=== PATIENT | female | born 1990 | race African-American/Black ===

== ENCOUNTER 2020-03-06 20:31 | Outpatient (CLI) | payer OTHER ==
[2020-03-06 22:53] LABS: BILIRUBIN,URINE NEGATIVE (NEGATIVE); GLUCOSE, URINE (UA) NEGATIVE (NEGATIVE); KETONES,URINE (UA) 40 mg/dL (NEGATIVE); LEUKOCYTE ESTERASE, URINE NEGATIVE (NEGATIVE); NITRITE,URINE NEGATIVE (NEGATIVE); OCCULT BLOOD,URINE NEGATIVE (NEGATIVE); PROTEIN,URINE NEGATIVE (NEGATIVE); UROBILINOGEN,URINE 0.2 (NORMAL) E.U./dL (NORMAL)
[2020-03-06 22:54] LABS: CLARITY,URINE CLEAR (CLEAR)
[2020-03-06 23:01] LABS: BACTERIA,URINE None Seen /HPF (None Seen); RBC,URINE 0-5 /HPF (0-5); SQUAMOUS EPITHELIAL CELL,UR NONE SEEN (<= Few)
--- NOTE | 2020-03-06 23:23 | PROVIDER PROGRESS NOTE ---
- HPI Chief Complaint: Vaginal bleeding Current : Patient is a 29-year-old G2, P1 at approximately 30 weeks EGA per patient report here with vaginal bleeding. Patient reports that she had a small amount of dark blood upon waking today. As her day progressed she had passage of higher volume of red blood. No active bleeding no passage of clots. Patient denies any recent SA and denies any instigating events. Reports movement. Denies loss of fluid or active contractions. Reports severe EVARISTO. Seeing Mayes next week for consult. Has had 1 prior about 17 months ago. Otherwise unremarkable past medical history. PMH: none PSH: CSx1 wisdom teeth neck cyst removed OBHX: one prior , uncomplicated CS forfailure to progress and intolerance of labor Current EDU 05/16/20 Gestation 29 Weeks and 6 Days 2 Para 1 Vital Signs Temperature 99.3 F 03/06/20 20:52 Heart Rate 101 H 03/06/20 20:52 Respiratory Rate 18 03/06/20 20:52 Blood Pressure 102/64 03/06/20 20:52 O2 Saturation 99 03/06/20 20:52 Temperature 99.3 F 03/06/20 20:52 Heart Rate 101 H 03/06/20 20:52 Respiratory Rate 18 03/06/20 20:52 Blood Pressure 102/64 03/06/20 20:52 O2 Saturation 99 03/06/20 20:52 - Exam GEN: NAD HEAD: NCAT EYES: No scleral icterus or conjunctival injection NECK: No cervical LAD or TM CV: RRR RESP: CTAB, normal effort ABD: S&NT/ND,gravid PSYCH: appropriate affect NEURO: alert and oriented, normal gait and coordination EXT: WWP PELVIC: NEFG. Nl BSUMA EFM 150 mod andres 10x10 accels once decels--> aga TOCO: Q4-5 min, mild SVE: closed/long/high/soft -Dark blood on exam glove Prelim US read showed TVCL > 5 cm and TACL > 4 cm, anterior placenta without previa and appears cephalad to uterine incision FFN positive in the setting of vaginal bleeding - Plan Plan: Warning signs reviewed Patient discharged to home with precautions FINAL DX: Vaginal bleeding in False labor
[2020-03-06] MEDS ORDERED: LACTATED RINGERS 500 ML IV ONE (23:27)
[2020-03-06 23:48] VITALS: BP 119/69
[2020-03-07 03:52] LABS: CANDIDA GROUP DNA NEGATIVE (NEGATIVE); CANDIDA KRUSEI DNA NEGATIVE (NEGATIVE); TRICHOMONAS VAGINALIS DNA NEGATIVE (NEGATIVE)
--- NOTE | 2020-03-07 10:09 | Ultrasound Report ---
PROCEDURE: OB Transvaginal INDICATIONS: vaginal bleeding with h/o previous c/s OUTSIDE/PRIOR DATING DATA: Estimated date of delivery (KAILEE) from first dating scan: 05/16/2020 as per provider. TECHNIQUE: Real-time scanning was performed of the fetus, with image documentation. Endovaginal scanning: Performed for further evaluation. COMPARISON: None available. FINDINGS: A single living intrauterine gestation is present. Presentation: Transverse, head to maternal left. Placenta: Placental position is anterior, without previa. There are small hypoechoic periplacental co llections likely representing venous lakes. No definite periplacental hematoma to suggest abruption. Amniotic fluid index: 17.3 cm, within normal limits for gestational age. heart rate: 153 beats per minutes. Maternal cervical canal: 5 cm long; normal length is 2.5 cm or more. Cervix appears closed without en docervical fluid or funneling visualized. Estimated gestational age from provided history: 29 weeks 6 days. Other: A section scar is visualized without evidence of dehiscence. IMPRESSION: 1. Limited study demonstrates a single living intrauterine . 2. No biometry was performed on the current study. Recommend a follow-up dedicated study if clinicall y indicated. 3. Small periplacental collections likely representing venous lakes demonstrated. No definite peripla cental hematoma to suggest abruption. Reviewed by: Elmer Rosa MD on 03/07/2020 10:07 AM [facility] Approved by: Elmer Rosa MD on 03/07/2020 10:07 AM PST Station ID: [id number]
--- NOTE | 2020-03-07 10:17 | Ultrasound Report ---
PROCEDURE: OB Limited INDICATIONS: vaginal bleeding with h/o previous c/s OUTSIDE/PRIOR DATING DATA: Estimated date of delivery (KAILEE) from first dating scan: 05/16/2020 as per provider. TECHNIQUE: Real-time scanning was performed of the fetus, with image documentation. Endovaginal scanning: Performed for further evaluation. COMPARISON: None available. FINDINGS: A single living intrauterine gestation is present. Presentation: Transverse, head to maternal left. Placenta: Placental position is anterior, without previa. There are small hypoechoic periplacental co llections likely representing venous lakes. No definite periplacental hematoma to suggest abruption. Amniotic fluid index: 17.3 cm, within normal limits for gestational age. heart rate: 153 beats per minutes. Maternal cervical canal: 5 cm long; normal length is 2.5 cm or more. Cervix appears closed without en docervical fluid or funneling visualized. Estimated gestational age from provided history: 29 weeks 6 days. Other: A section scar is visualized without evidence of dehiscence. IMPRESSION: 1. Limited study demonstrates a single living intrauterine . 2. No biometry was performed on the current study. Recommend a follow-up dedicated study if clinicall y indicated. 3. Small periplacental collections likely representing venous lakes demonstrated. No definite peripla cental hematoma to suggest abruption. Reviewed by: Elmer Rosa MD on 03/07/2020 10:06 AM PST Approved by: Elmer Rosa MD on 03/07/2020 10:06 AM PST Station ID: [id number]
[2020-03-07 18:34] LABS: TRICHOMONAS VAGINALIS DNA NEGATIVE (NEGATIVE)
== END 2020-03-07 01:25 | disposition home or self-care (01) ==
LOC: WFO 20:31 → FBP 20:37 → WFO 03-07 01:25
PROVIDERS: ATTEND Obstetrics & Gynecology
DX: O46.93 Antepartum hemorrhage, unspecified, third trimester (principal); Z3A.30 30 weeks gestation of pregnancy; O34.219 Maternal care for unspecified type scar from previous cesarean delivery; N85.8 Other specified noninflammatory disorders of uterus
CPT/HCPCS: 76815; 76817; 81001; 82731; 87481; 87491; 87591; 87661; 87801; 96360; 99214; J7120; 87086

== ENCOUNTER 2020-07-29 09:18 | Emergency (ER) | payer OTHER ==
--- OUTSIDE RECORDS SUMMARY | 2020-07-29 09:22 | EXTERNAL MEDICAL SUMMARY RPT | Continuity of Care Document ---
:1990 Demographics Phone Unavailable Preferred Language Unknown Marital Status Unknown Adventist Affiliation Unknown Race Unknown Ethnic Group Unknown Author Organization [place] Address [address] [phone] Phone Problems date description facility [id number] [facility]
--- OUTSIDE RECORDS SUMMARY | 2020-07-29 09:29 | EXTERNAL MEDICAL SUMMARY RPT | Continuity of Care Document ---
:1990 Demographics Phone Unavailable Preferred Language Unknown Marital Status Unknown Rastafarian Affiliation Unknown Race Unknown Ethnic Group Unknown Author Organization [place] Address [address] [phone] Phone Problems date description facility [id number] [facility]
[2020-07-29] MEDS ORDERED: KETOROLAC 30 MG/ML VIAL IM STA (09:48)
--- NOTE | 2020-07-29 09:50 | ED Physician Documentation ---
History of Present Illness - Stated complaint Stated Complaint: BACK PX - Chief complaint Chief Complaint: Back Pain - History obtained from History obtained from: Patient - Additonal information Additional information: 30-year-old woman, previously healthy presents with left lower back pain sudden in onset while folding laundry on Thursday, gradually worsening since that time, currently a 5 out of 10 nonradiating, dull and constant with sharp pain when she twists or moves. Denies urinary symptoms, prior injury, with the exception of falling on the back a couple weeks ago while playing with her child. Denies fever, sensory or motor deficits. Review of Systems Constitutional: denies: Fever : denies: Dysuria, Frequency Musculoskeletal: reports: Back pain. denies: Extremity pain Neurologic: denies: Focal weakness, Numbness PD PAST MEDICAL HISTORY - Past Medical History Past Medical History: Yes Cardiovascular: None Respiratory: None Neuro: Migraines Endocrine/Autoimmune: None GI: None PRINTING PRESS OPERATOR: None : None HEENT: None Psych: Depression, Anxiety Musculoskeletal: None Derm: None - Past Surgical History Past Surgical History: Yes /PRINTING PRESS OPERATOR: section - Present Medications Home Medications: Ambulatory Orders Medication Instructions Recorded Confirmed Methocarbamol [Robaxin-750] 750 mg PO Q8H PRN #10 tablet 07/29/20 Pnv No.95/Ferrous Fum/Folic AC 1 each PO DAILY 07/29/20 07/29/20 [ Tablet] - Allergies Allergies/Adverse Reactions: Allergies Allergy/AdvReac Type Severity Reaction Status Date / Time No Known Drug Allergies Allergy Verified 07/29/20 09:23 - Social History Does the pt smoke?: No Smoking Status: Never smoker Does the pt drink ETOH?: Yes Does the pt have substance abuse?: No - Immunizations Immunizations are current?: Yes PD ED PE NORMAL - Vitals Vital signs reviewed: Yes - General General: Alert and oriented X 3, No acute distress, Well developed/nourished - HEENT HEENT: Atraumatic, PERRL, EOMI - Neck Neck: Supple, no meningeal sign - Back Back: No CVA TTP, No spinal TTP, Other (Left lower back discomfort to palpation in a muscular distribution) - Derm Derm: Normal color, Warm and dry - Extremities Extremities: No deformity, No tenderness to palpate, Normal ROM s pain, Other (2+ bilateral DP and PT pulses.Normal strength, sensation) - Neuro Neuro: No motor deficit, No sensory deficit - Psych Psych: Normal mood, Normal affect Results - Vitals Vitals: Vital Signs - 24 hr 07/29/20 09:24 Temperature 36.4 C L Heart Rate 81 Respiratory 18 Rate Blood Pressure 118/74 O2 Saturation 99 Oxygen O2 Source Room air PD MEDICAL DECISION MAKING - ED course ED course: 30-year-old woman presents with uncomplicated low back strain. She is driving today so we will give her a Toradol shot and short prescription of muscle relaxer says she can sleep at night. Advised her to dispose of unused pills at her local pharmacy. Advised her not to drive or operate heavy machinery while taking Robaxin. return precautions given.She will follow-up with her primary doctor Departure - Departure Disposition: 01 Home, Self Care Clinical Impression: Strain of muscle, fascia and tendon of lower back, initial encounter Condition: Good Instructions: ED Sprain Strain Lumbar Prescriptions: Methocarbamol [Robaxin-750] 750 mg PO Q8H PRN #10 tablet PRN Reason: Pain Comments: You are seen in the emergency department for left lower back pain. You appear to have strained the muscle. Return to the emergency department if you experience any new or worsening symptoms or have other concerns. Follow-up with your primary doctor this week
[2020-07-29 10:28] VITALS: BP 128/76
== END 2020-07-29 10:28 | disposition home or self-care (01) ==
LOC: ED 09:18
DX: S39.012A Strain of muscle, fascia and tendon of lower back, initial encounter (principal); W19.XXXA Unspecified fall, initial encounter; Y93.89 Activity, other specified
CPT/HCPCS: 96372; 99282; 99284